=== PATIENT | male | born 1985 | race Two or more races ===

== ENCOUNTER 2025-01-05 10:12 | Emergency (ER) | payer MEDICAID, SELFPAY ==
[2025-01-05 10:19] VITALS: BP 141/93; PULSE 102; RESP 19; TEMP 37.2; O2SAT 95
[2025-01-05 10:38] VITALS: PULSE 90; RESP 16; O2SAT 95
[2025-01-05 10:41] VITALS: BMI 29.0
--- NOTE | 2025-01-05 10:47 | PD.EDADULT ---
ED General RME/HPI General Chief complaint: Altered Mental Status Stated complaint: AMS Time Seen by Provider: 01/05/25 10:51 Arrival date/time: 01/05/25 10:12 RME / HPI RME / HPI narrative: DR. LOPEZ MAIN ED EVALUATION: 39 year old male presents to the Emergency Department BIBA and police with complaint of altered mental status. He states he was smoking Fentanyl with a pipe and then he fell asleep in his car and police was called. He also admits to using methamphetamine. He states he has been using Fentanyl with a pipe for a 1 year. He otherwise has no complaints, asymptomatic. Related Data Home Medications ?Medication ?Instructions ?Recorded ?Confirmed buspirone 15 mg tablet 15 mg PO BID 04/30/23 04/30/23 quetiapine 300 mg tablet 300 mg PO DAILY 04/30/23 04/30/23 Allergies Allergy/AdvReac Type Severity Reaction Status Date / Time No Known Allergies Allergy Verified 01/05/25 10:43 Review of Systems Review of Systems Systems Reviewed: All systems reviewed, normal except as documented Narrative Review of Systems: Constitutional: DENIES: fevers; Eyes: DENIES: loss of vision; Head/Ear/Nose: DENIES: loss of hearing. Throat: DENIES: dysphagia. Cardiovascular: DENIES: chest pain, dyspnea, or syncope. Respiratory: DENIES: shortness of breath; Gastrointestinal: DENIES: rectal bleeding or melena. Genitourinary: DENIES: dysuria (painful or difficult urination); Musculoskeletal: DENIES: arthralgia (pain in a joint); Skin: DENIES: rash; Neurological: DENIES: loss of function or movement; Psychiatric: DENIES: recent major life stressor, emotional problem, illicit drug use or abuse; Endocrinology: DENIES: weight change,; Hematologic/Lymphatic: DENIES: abnormal bruising. Allergic/Immunologic: DENIES: urticaria (hives). Past Medical History Past Medical History CARDIAC: Negative Congestive Heart Failure RESPIRATORY: Negative Chronic Obstructive Pulmonary Disease (COPD) GENITOURINARY: Negative Renal Disease ENDOCRINE: Negative Diabetes Mellitus Type 1 or Diabetes Mellitus Type 2 Social History SMOKING STATUS: Current every day smoker SUBSTANCE USE: marijuana, heroin, methamphetamine and other (Fentanyl) ALCOHOL: Current ED Exam Narrative Physical exam: Physical Exam: General: The vital signs were reviewed. Patient is kind of hypervigilant looking around bobbing his head and neck around at times heart is going fast pupils are 3 mm bilaterally otherwise in no apparent distress with a patent airway, no respiratory distress and has no apparent circulatory problems. Head & Scalp: Normocephalic, atraumatic. Face: Appears normal and is without lesions, deformity. Ears: Left external pinna appears normal. Right external pinna appears normal. Eyes: The sclera is anicteric. No obvious photophobia. The Left and Right Orbit/Lid/Conjunctiva appears normal without swelling, discoloration or injection. Nose: The nose is without deformity, discharge or tenderness; Throat: Appears normal. The mucous membranes are pink and moist without exudates, redness or mass seen. The tongue appears normal. Neck: The neck is supple and no apparent mass or adenopathy. Chest: The chest wall is normal in size and symmetry and has no chest wall tenderness or crepitus. The patient displays normal ventilator effort without retractions, accessory muscle use and has adequate air movement bilaterally with no wheezes and no rales. Cardiovascular: Tachycardia [birth year]1939 in the ambulance bay regular rate and rhythm; No murmurs, rubs, or gallops; Gastrointestinal: The abdomen appears normal. No obvious hernias or mass. The abdomen is soft and benign, non-distended, with no pain, no guarding and no rebound tenderness. Bowel sounds are present and normal sounding. No CVA tenderness. Genitourinary: Back/Spine: Extremities/Musculoskeletal/lymphatic: The bilateral upper and lower extremities are warm. There is no evidence of arterial insufficiency. There is no evidence of venous insufficiency/edema. The patient spontaneously moves bilateral upper and lower extremities with no pain and no limitation of movement. There is no apparent, injury or trauma. Skin: The skin is warm, dry and intact. No rashes. No petechia. No purpura. No abnormal bruising. The color is appropriate with no cyanosis. Mental status/Psychiatric: Mental status is appropriate for age. The patient has no apparent delusions, visual hallucinations, no apparent audible hallucinations. The patient has no apparent suicidal thoughts/ideation and no apparent homicidal thoughts/ideation. Neurological: The patient is awake, alert, interactive, cordial, cooperative and is oriented to name and situation. The patient follows commands and answers historical question with no impairment. There is no visual disturbance apparent. The pupils are equal and reactive bilaterally with normal eye movements and no diplopia The bilateral upper and lower extremities have normal strength, normal range of motion and normal functioning. The gait, station and balance appear to be baseline with no acute change Course Quality Measures none Orders Category Date Time Status Miscellaneous Nursing Order NOW Care 01/05/25 10:51 Active Alcohol, Blood Medical Stat Lab 01/05/25 11:24 Completed CBC Stat Lab 01/05/25 11:24 Completed Comprehensive Metabolic Panel Stat Lab 01/05/25 11:24 Completed Drug Screen,Urine Stat Lab 01/05/25 11:59 Completed Urinalysis Stat Lab 01/05/25 11:59 Completed Vital Signs Vital signs: Vital Signs Temperature 99.0 F 01/05/25 10:19 Pulse Rate 102 H 01/05/25 10:19 Respiratory Rate 19 01/05/25 10:19 Blood Pressure 141/93 H 01/05/25 10:19 Pulse Oximetry (%) 95 01/05/25 10:19 Oxygen Delivery Method Room Air 01/05/25 10:19 [facility] Patient data External records reviewed:: [facility] previous records (Reviewed last ED visit dated 04/30/23 discharged with the following: Methamphetamine abuse) Clinical information provided by:: patient Social determinants that could affect healthcare access:: substance use (Fentanyl, marijuana, heroin, methamphetamine. ) Patient has the following chronic illnesses:: Polysubstance abuse and alcohol use; but denies any PMHx, surgeries, daily medications, or known allergies. How is presenting disease/condition affected by chronic disease/condition?: no chronic disease Evaluation data The following diagnostics were reviewed and interpreted by me:: lab results Lab and/or radiology exams considered but not ordered:: none Interpretation Summary: See above under MDM narrative. Urine is positive for Fentanyl, methamphetamine, and marijuana. Medications Medications considered but not ordered:: none Medication administrations:: see above if any Consultations Consultation(s) initiated? (list below): No Diagnosis Differential Diagnosis ED Complaint MDM: generalized weakness, dehydration, electrolyte imbalance Most likely diagnosis given after review of the tests above:: Fentanyl, methamphetamine, and marijuana abuse. Admission Indicated Admission indicated?: not indicated Explain why admission is indicated or not indicated:: Patient has no emergent abnormalities on his studies and can be managed on an outpatient basis. Admission Request Was there a request for admission?: No Disposition Plan Disposition Plan: Discharge Discharge Attestation Discharge Attestation: The patient and all family members were given an opportunity to ask questions and understood the discharge instructions. Discharge instructions specifically effects, indications for sooner follow up or return to the emergency department, and the expected course of current diagnosis. Patient condition: Stable Medical Decision Making MDM Narrative MDM Narrative: Patient was found slumped over unresponsive in the car but arouses stimuli admit using a pipe with fentanyl and later admits to using methamphetamine. Seems tachycardic and vigilant and I suspect he is under the influence of meth may be coming down and/or fentanyl mixed. Work and observe him do some basic labs. He does have a history of alcohol abuse on the chart and schizophrenia. Neurochecks every 15 minutes for next 2 hours to make sure that he is not can become apneic or slow down his breathing. Patient has been observed since arrival and on recheck at 1340 hrs. patient is alert awake his heart rate is down to 103 he is not as jittery is not as vigilant he has had no episodes of apnea and no episodes of slowing his breathing and his mental status is been fully alert since the initial 30 minutes where he was a still little sluggish and then that seems to have resolved over the past hour and a half 2 hours. Medical workup shows white count 8.5 hemoglobin of 14.7 chemistries electrolytes are normal BUN/creatinine are normal glucose 105 transaminases and total bilirubin are normal urine came back negative and his drug screen is positive for fentanyl amphetamines and marijuana but his alcohol level is 0. Clinically patient is ready to go he is hungry his vital signs are normalizing and he has been advised he should not use illicit drugs in [facility] or other recovery programs. Differential Diagnosis Differential Diagnosis: generalized weakness, dehydration, electrolyte imbalance Lab Data 01/05/25 11:24 01/05/25 11:24 Labs: Lab Results 01/05/25 01/05/25 Range/Units 11:24 11:59 WBC 8.5 (3.8-10.6) Thou/mm3 RBC 5.08 (4.50-5.90) Miln/mm3 Hgb 14.7 (13.5-16.0) g/dL Hct 42.8 (41.0-53.0) % MCV 84 (80-100) fL MCH 28.9 (25.0-35.0) pg MCHC 34.3 (31.0-37.0) g/dl RDW Std Deviation 35.1 (35.1-43.9) fL Plt Count 304 (140-440) Thou/mm3 Neut % (Auto) 65 (37-80) % Lymph % (Auto) 24 (10-50) % [place] % (Auto) 8 (0-12) % Eos % (Auto) 2 (0-10) % Baso % (Auto) 0 (0-2.5) % Neut # (Auto) 5.6 (1.8-7.7) Thou/mm3 Lymph # (Auto) 2.1 (1.0-4.8) Thou/mm3 [place] # (Auto) 0.7 (0.0-0.8) Thou/mm3 Eos # (Auto) 0.2 (0.0-0.5) Thou/mm3 Baso # (Auto) 0.0 (0.0-0.2) Thou/mm3 Immature Gran # (Auto) 0.03 H (0.00-0.00) Thou/mm3 Absolute Nucleated RBC 0.00 (0.00-0.00) Thou/mm3 Immature Gran % 0 (0-0) % Nucleated RBC % 0 (0) /100 WBC Sodium 138 (136-145) mMol/L Potassium 4.2 (3.4-5.1) mMol/L Chloride 104 (98-107) mMol/L Carbon Dioxide 27.8 (20.0-31.0) mMol/L Anion Gap 6 L (7-16) BUN 14 (9-23) mg/dL Creatinine 1.0 (0.6-1.3) mg/dL Estim Creat Clear Calc 98.5 (>60) mL/min eGFR > 60 (60 - ) See Note BUN/Creatinine Ratio 14 (12-20) Ratio Glucose 105 (74-106) mg/dL Calculated Osmolality 276 (275-295) Calcium 9.0 (8.3-10.6) mg/dL Corrected Calcium 9.0 (8.5-10.1) mg/dL Total Bilirubin 0.5 (0.3-1.2) mg/dL AST 19 (0-34) U/L ALT 27 (10-49) U/L Alkaline Phosphatase 108 (46-116) U/L Total Protein 7.3 (5.7-8.2) gm/dL Albumin 4.3 (3.5-5.0) gm/dL Globulin 3.0 (2.3-3.5) gm/dL Albumin/Globulin Ratio 1.4 (1.2-2.2) Ur Collection Type Clean Catch Urine Color Lt-Yellow (Lt Yel-Yel) Urine Clarity Clear (Clear/Hazy) Urine pH 7.0 (5.0-7.0) Ur Specific [place] 1.023 (1.001-1.035) Urine Protein Negative (Neg - Trace) Urine Glucose (UA) Negative (Negative) Urine Ketones Negative (Negative) Urine Blood Negative (Negative) Urine Nitrite Negative (Negative) Urine Bilirubin Negative (Negative) Urine Urobilinogen (Auto) Negative (0.0-1.0) mg/dL Ur Leukocyte Esterase Negative (Negative) Urine RBC 3 (0-3) /hpf Urine WBC 1 (0-5) /hpf Ur Squamous Epith Cells 0 (0-5) /hpf Urine Bacteria None (None) Urine Opiates Screen Negative (Negative) Urine Fentanyl Screen Positive A (Negative) Ur Barbiturates Screen Negative (Negative) U Amphetamin/Meth Scrn Positive A (Negative) U Benzodiazepines Scrn Negative (Negative) U Cocaine Metab Screen Negative (Negative) U Marijuana (THC) Screen Positive A (Negative) Ethyl Alcohol < 3.0 (0-10.0) mg/dL Discharge Plan Plan Patient Disposition: HOME (Self Care) Prescriptions/Referrals Prescriptions/Med Rec: No Action quetiapine 300 mg tablet 300 mg PO DAILY buspirone 15 mg tablet 15 mg PO BID Patient Comments: TAKE ONE TABLET BY MOUTH TWICE DAILY Problem List Clinical Impression: Accidental fentanyl overdose, Methamphetamine abuse, Marijuana abuse Patient/Caregiver Discharge Instructions Education Materials: ED Drug Abuse Additional Instructions: Today you were found slumped over in your car presumably overdosed on fentanyl but responded to stimuli and over the last 3 hours your mental status as normalized. Also have methamphetamine and marijuana your system. Please stop using drugs. Please consider [facility] recovery programs and/or [facility] which are available in the [facility]. Please take care of your body and consume proper nutrition. Print Language: Italian Stand Alone Forms: Patient Portal Info Letter
--- NOTE | 2025-01-05 11:24 | PC.NURSE ---
PT BROUGHT IN AFTER BEING FOUND IN CAR AFTER TAKING RECREATIONAL DRUGS. PER EMS PT HAD TAKEN METH AND FENTYNAL. ON ASSESSMENT PT IS LETHARGIC BUT AROUSABLE. PT RESPONDING TO QUESTIONS. MD IN TO SEE PT AND WILL FOLLOW THROUGH WITH ORDERS.
[2025-01-05 11:35] LABS: Basophils % (Auto) 0 % (0-2.5); Eosinophils # (Auto) 0.2 Thou/mm3 (0.0-0.5); Eosinophils % (Auto) 2 % (0-10); Hematocrit 42.8 % (41.0-53.0); Hemoglobin 14.7 g/dL (13.5-16.0); Immature Granulocytes % (Auto) 0 % (0-0); Immature Granulocytes Auto 0.03 Thou/mm3 (0.00-0.00); Lymphocytes # (Auto) 2.1 Thou/mm3 (1.0-4.8); Lymphocytes % (Auto) 24 % (10-50); Mean Corpuscular HGB Conc 34.3 g/dl (31.0-37.0); Mean Corpuscular Hemoglobin 28.9 pg (25.0-35.0); Mean Corpuscular Volume 84 fL (80-100); Monocytes # (Auto) 0.7 Thou/mm3 (0.0-0.8); Monocytes % (Auto) 8 % (0-12); Neutrophils # (Auto) 5.6 Thou/mm3 (1.8-7.7); Neutrophils % (Auto) 65 % (37-80); Nucleated Red Blood Cell % 0 /100 WBC (0); Platelet Count 304 Thou/mm3 (140-440); RDW Standard Deviation 35.1 fL (35.1-43.9); Red Blood Count 5.08 Miln/mm3 (4.50-5.90); White Blood Count 8.5 Thou/mm3 (3.8-10.6)
--- NOTE | 2025-01-05 11:36 | PC.NURSE ---
PT AMBULATED 80 FEET WITH MINIMAL C/O DIZZINESS. MADE AWARE.
[2025-01-05 11:56] LABS: Alanine Aminotransferase 27 U/L (10-49); Albumin, Serum 4.3 gm/dL (3.5-5.0); Albumin/Globulin Ratio 1.4 (1.2-2.2); Alcohol, Blood Medical < 3.0 mg/dL (0-10.0); Alkaline Phosphatase 108 U/L (46-116); Anion Gap 6 (7-16); Aspartate Amino Transferase 19 U/L (0-34); BUN/Creatinine Ratio 14 Ratio (12-20); Bilirubin,Total 0.5 mg/dL (0.3-1.2); Blood Urea Nitrogen 14 mg/dL (9-23); Carbon Dioxide 27.8 mMol/L (20.0-31.0); Chloride 104 mMol/L (98-107); Estimated Creatinine Clearance 98.5 mL/min (>60); Glucose 105 mg/dL (74-106); Osmolality,Calculated 276 (275-295); Potassium 4.2 mMol/L (3.4-5.1); Sodium 138 mMol/L (136-145); Total Protein 7.3 gm/dL (5.7-8.2); eGFR > 60 See Note
[2025-01-05 11:57] VITALS: BP 140/82; PULSE 83; RESP 18; TEMP 37.1; O2SAT 96
[2025-01-05 12:19] LABS: Collection Type, Urine Clean Catch; Squamous Epithelial Cell,Urine 0 /hpf (0-5)
[2025-01-05 12:31] LABS: Bilirubin,Urine Negative (Negative); Blood,Urine Negative (Negative); Clarity,Urine Clear (Clear/Hazy); Color,Urine Lt-Yellow (Lt Yel-Yel); Glucose, Urine Negative (Negative); Ketones,Urine Negative (Negative); Leukocyte Esterase,Urine Negative (Negative); Nitrite,Urine Negative (Negative); Protein,Urine Negative (Neg - Trace); RBC,Urine 3 /hpf (0-3); Specific Gravity,Urine 1.023 (1.001-1.035); Urobilinogen,Urine Negative mg/dL (0.0-1.0); WBC,Urine 1 /hpf (0-5)
[2025-01-05 12:38] LABS: Amphetamine/Methamp Scrn,U Positive (Negative); Barbiturate Screen,Urine Negative (Negative); Benzodiazepines Screen,Urine Negative (Negative); Benzoylecgonine Screen, Ur Negative (Negative); Fentanyl Screen,Urine Positive (Negative); Opiate Screen,Urine Negative (Negative); THC Screen,Urine Positive (Negative)
--- NOTE | 2025-01-05 13:47 | PC.NURSE ---
MEAL PROVIDED TO PT.
[2025-01-05 14:07] VITALS: BP 123/85; PULSE 88; RESP 20; O2SAT 96
== END 2025-01-05 14:08 | disposition home or self-care (01) ==
LOC: SERX 13:58
PROVIDERS: Emergency Provider Emergency Medicine; PCP Family Medicine
DX: T40.411A Poisoning by fentanyl or fentanyl analogs, accidental (unintentional), initial encounter (principal); F15.10 Other stimulant abuse, uncomplicated; F12.10 Cannabis abuse, uncomplicated
CPT/HCPCS: 36415; 80053; 80307; 80320; 81001; 85025; 99283; G0480

== ENCOUNTER 2025-07-22 12:53 | Emergency (ER) | payer MEDICAID, SELFPAY ==
[2025-07-22 12:56] VITALS: BP 104/64; PULSE 153; RESP 20; TEMP 37.1; O2SAT 88; BMI 23.9
--- NOTE | 2025-07-22 12:56 | EKG_ITS ---
[facility] Test Date: 2025-07-22 Pat Name: TERE SÁNCHEZ Department: Room: - Gender: Male Delivery Assistant: : 1985 Requested By: Marques Huff Order Number: [id number] Reading MD: Marques Huff Measurements Intervals Monitor Rate: 129 P: 51 [place]: 149 QRS: -58 QRSD: 90 T: 51 QT: 291 QTc: 427 Interpretive Statements SINUS TACHYCARDIA LEFT ANTERIOR FASCICULAR BLOCK [QRS AXIS <= -45, QR IN I, RS IN II] Compared to ECG 04/30/2023 11:48:30 Left anterior fascicular block now present /store/S0/[id number]/[id number].pdf
[2025-07-22 12:57] VITALS: PULSE 150; RESP 20; O2SAT 91
[2025-07-22] MEDS: levETIRAcetam INJ 100 MG/ML VIAL 5ML 1000 MG IVP (13:18)
[2025-07-22] MEDS: RINGERS LACTATED 1000 ML 1,000 ML 999 ML IV ×2 (13:19→13:59)
[2025-07-22] MEDS: DIAZEPAM INJ 5 MG/ML VIAL 2 ML 10 MG IVP (13:19)
--- NOTE | 2025-07-22 13:35 | PC.LAC ---
Pt. [place] room [place] was found down on the ground having a seizure per bystanders, pt. admitted to meth and marijuana use this morning. Pt. is diaphoretic and very sleepy. Pt. will wake up when being spoken to but then closes his eyes and goes back to resting. Pt. has redness to the center upper chest from being sternal rubbed.
--- NOTE | 2025-07-22 13:35 | XR_ITS ---
Examination: CT brain head without contrast. 2-D sagittal coronal reconstructions Date and time of exam: July 22, 2025, 1354 hours INDICATIONS: Seizures with fall and injury to the back of the head today COMPARISON: June 02, 2004 CTDI: vol (mGy): 51.2 DLP: (mGycm): 1066 Technique: Multiple CT axial sections of the brain have been obtained, 5 mm slice thickness. Contrast has not been administered. 2-D sagittal, coronal reconstructions have been obtained Low dose protocols were performed. One or more of the following dose reduction techniques were used; automated exposure control, adjustment of the mA and/or KV according to patient size, use of iterative reconstruction technique. Findings: No significant ventricular enlargement. 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 No mass effect or midline shift Basal cisterns are not remarkable. Fourth ventricle is midline. Cranial vault intact. 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
[2025-07-22 13:37] LABS: Collection Type, Urine Clean Catch; Squamous Epithelial Cell,Urine 0 /hpf (0-5)
[2025-07-22 13:45] LABS: Basophils # (Auto) 0.0 Thou/mm3 (0.0-0.2); Basophils % (Auto) 0 % (0-2.5); Eosinophils # (Auto) 0.2 Thou/mm3 (0.0-0.5); Eosinophils % (Auto) 2 % (0-10); Hematocrit 43.4 % (41.0-53.0); Hemoglobin 15.3 g/dL (13.5-16.0); Immature Granulocytes Auto 0.06 Thou/mm3 (0.00-0.00); Lymphocytes # (Auto) 2.4 Thou/mm3 (1.0-4.8); Lymphocytes % (Auto) 21 % (10-50); Mean Corpuscular HGB Conc 35.3 g/dl (31.0-37.0); Mean Corpuscular Hemoglobin 30.6 pg (25.0-35.0); Mean Corpuscular Volume 87 fL (80-100); Monocytes # (Auto) 0.7 Thou/mm3 (0.0-0.8); Monocytes % (Auto) 7 % (0-12); Neutrophils # (Auto) 7.8 Thou/mm3 (1.8-7.7); Neutrophils % (Auto) 70 % (37-80); Nucleated Red Blood Cell # 0.00 Thou/mm3 (0.00-0.00); Nucleated Red Blood Cell % 0 /100 WBC (0); Platelet Count 318 Thou/mm3 (140-440); RDW Standard Deviation 37.8 fL (35.1-43.9); Red Blood Count 5.00 Miln/mm3 (4.50-5.90); White Blood Count 11.2 Thou/mm3 (3.8-10.6)
[2025-07-22 13:58] LABS: INR 1.0 (0.9-1.3); Partial Thromboplastin Time 21.1 Seconds (22.0-36.0); Prothrombin Time 10.5 Seconds (9.0-12.2)
[2025-07-22 14:00] LABS: B-Type Natriuretic Peptide < 20 pg/mL (0-100)
[2025-07-22 14:02] LABS: Alanine Aminotransferase 23 U/L (10-49); Albumin, Serum 4.6 gm/dL (3.5-5.0); Albumin/Globulin Ratio 1.7 (1.2-2.2); Alkaline Phosphatase 108 U/L (46-116); Anion Gap 13 (7-16); Aspartate Amino Transferase 23 U/L (0-34); BUN/Creatinine Ratio 8 Ratio (12-20); Bilirubin,Total 0.2 mg/dL (0.3-1.2); Blood Urea Nitrogen 11 mg/dL (9-23); Calcium 9.4 mg/dL (8.3-10.6); Calcium (Corrected) 9.4 mg/dL (8.5-10.1); Carbon Dioxide 25.4 mMol/L (20.0-31.0); Chloride 104 mMol/L (98-107); Creatine Kinase 121 U/L (34-171); Creatinine (Component) 1.3 mg/dL (0.6-1.3); Estimated Creatinine Clearance 60.2 mL/min (>60); Globulin 2.7 gm/dL (2.3-3.5); Glucose 103 mg/dL (74-106); Lipase 33 U/L (12-53); Magnesium 2.3 mg/dL (1.6-2.6); Osmolality,Calculated 282 (275-295); Potassium 3.9 mMol/L (3.4-5.1); Sodium 142 mMol/L (136-145); Total Protein 7.3 gm/dL (5.7-8.2); eGFR > 60 See Note
[2025-07-22 14:04] LABS: Amphetamine/Methamp Scrn,U Positive (Negative); Barbiturate Screen,Urine Negative (Negative); Benzodiazepines Screen,Urine Negative (Negative); Benzoylecgonine Screen, Ur Negative (Negative); Fentanyl Screen,Urine Positive (Negative); Opiate Screen,Urine Negative (Negative); THC Screen,Urine Positive (Negative)
[2025-07-22 14:10] LABS: Bilirubin,Urine Negative (Negative); Blood,Urine Negative (Negative); Clarity,Urine Clear (Clear/Hazy); Color,Urine Lt-Yellow (Lt Yel-Yel); Culture Indicated,Urine Not Indicated; Glucose, Urine Negative (Negative); Hyaline Casts,Urine < 1 /hpf (0-1); Ketones,Urine Negative (Negative); Leukocyte Esterase,Urine Negative (Negative); Nitrite,Urine Negative (Negative); PH,Urine 6.5 (5.0-7.0); Protein,Urine 1+ (Neg - Trace); RBC,Urine 2 /hpf (0-3); Specific Gravity,Urine 1.025 (1.001-1.035); Sperm,Urine Present; Urobilinogen,Urine Negative mg/dL (0.0-1.0); WBC,Urine 1 /hpf (0-5)
--- NOTE | 2025-07-22 14:19 | EDNOTE_ITS ---
<Statement entered by Patricia Reynolds MD - 07/23/25 06:48> As co-signing physician, I was present and available for consult prn. I concur with the plan and care as documented by the midlevel provider. ED General RME/HPI General Chief complaint: Seizure Stated complaint: SEIZURES Time Seen by Provider: 07/22/25 12:55 Arrival date/time: 07/22/25 12:53 CC: Seizure HPI patient presents to the ER via EMS who state the patient stepped out of a bus and felt promptly fell to the ground with seizure-like activity . Patient does not have a history of seizures however has a history of methamphetamine use and upon arrival his heart rate was in the 150s, the patient admits to methamphetamine marijuana and drinking alcohol yesterday. Patient is awake alert EMS report postictal. Has been improving. Review of the medical record show another visit to this hospital for polysubstance abuse Related Data Home Medications ?Medication ?Instructions ?Recorded ?Confirmed buspirone 15 mg tablet 15 mg PO BID 04/30/23 quetiapine 300 mg tablet 300 mg PO DAILY 04/30/23 Previous Rx's ?Medication ?Instructions ?Recorded levetiracetam 500 mg tablet 500 mg PO BID #30 tabs 05/09 (Kebluera) Allergies Allergy/AdvReac Type Severity Reaction Status Date / Time No Known Allergies Allergy Verified 07/22/25 13:02 Review of Systems Review of Systems Narrative Review of Systems: GEN: No fever, no chills, no weight loss EYES: No discharge, no visual changes, no pain HEENT: No ear pain, no congestion, no sore throat PULM: No shortness of breath, no cough, no congestion CV: No chest pain, no dyspnea on exertion, no palpitations GI: No nausea, no vomiting, no diarrhea, no pain, no constipation : No frequency, no urgency, no dysuria MUSC/SKEL: No joint pain, no back pain SKIN: No rash PSYCH: No hallucinations, no depression HEME/LYMPH: No easy bleeding or bruising tendencies NEURO: No weakness, no headache Past Medical History Past Medical History CARDIAC: Negative Congestive Heart Failure RESPIRATORY: Negative Chronic Obstructive Pulmonary Disease (COPD) GENITOURINARY: Negative Renal Disease ENDOCRINE: Negative Diabetes Mellitus Type 1 or Diabetes Mellitus Type 2 Social History SMOKING STATUS: Current every day smoker SUBSTANCE USE: marijuana, heroin, methamphetamine and other (Fentanyl) ED Exam Narrative Physical exam: [General: Appears not in any acute distress Head normocephalic small abrasion to the back of the head. HEENT: Eyes pupils are PERRLA EOMs are intact mouth [place] dry membranes uvula is midline swallow symmetrical all other subsystems of HEENT are within acceptable limits Neck is supple nontender no JVD no edema Chest equal chest rise nontender to palpation Respiratory: Clear to auscultation no wheezes crackles or rubs CV: Rate rhythm is regular no murmurs rubs or clicks Abdomen is soft nontender no masses positive bowel sounds all 4 quadrants Back: No CVA tenderness no spinous process tenderness from cervical spine thoracic and lumbar spine Skin: Mildly diaphoretic, otherwise intact no petechiae rash induration ulcerat ion or crepitus Extremities: Moving all extremity against resistance cap refill less than 2 seconds neurosensory intact Neuro: Awake alert oriented x2, person and place, Glascow coma 15 no focal defic its] Course Course Course Narrative: Upon assessment patient was given 10 of Valium which reduced heart rate promptly into the 110s. 1 g of Keppra was loaded to prevent any further seizures. Reassessment of this patient at 1550, the patient has had no reoccurrence of seizure-like activity. The patient is awake alert blood pressure is now stabilized heart rate is under 100. CT shows old basal ganglier infarcts but nothing acute. Patient is positive for methamphetamines fentanyl and marijuana. Patient's case discussed with Dr. Foster neurologist who is requesting the patient be brought in for MRI and complete workup. Patient is in agreement with this plan. Patient's case clinical findings and imaging discussed with resident for Dr. Marte who agreed to accept the patient for admission. After being interviewed with the residents for the hospitalist, at 1624 the patient has elected to leave AMA. I advised him that he is at the risk for stroke at minimum leading up to and including . Patient understands he continues wanting to leave. Patient is awake alert oriented and of sound mind at this time. Quality Measures none Orders Category Date Time Status COVID-19 Screening Questionnaire NOW Care 07/22/25 15:54 Active Decision to Admit X1 Care 07/22/25 15:54 Active EKG (ED ONLY) *Do not use* NOW Care 07/22/25 12:56 Completed MRI Screening NOW Care 07/22/25 15:46 Active Consult to Neurology / Tele-Neurology Stat Cons 07/22/25 15:[address] head/brain wo con Stat Exams 07/22/25 13:35 Completed EKG (ED Only) Stat Exams 07/22/25 12:56 Draft MR head/brain wo con Stat Exams 07/22/25 Ordered Alcohol, Blood Medical Stat Lab 07/22/25 13:29 Received B-Type Natriuretic Peptide Stat Lab 07/22/25 13:29 Completed CBC Stat Lab 07/22/25 13:29 Completed Comprehensive Metabolic Panel Stat Lab 07/22/25 13:29 Completed Creatine Kinase Stat Lab 07/22/25 13:29 Completed Drug Screen,Urine Stat Lab 07/22/25 13:27 Completed Lipase Stat Lab 07/22/25 13:29 Completed Magnesium Stat Lab 07/22/25 13:29 Completed Partial Thromboplastin Time Stat Lab 07/22/25 13:29 Completed Prothrombin Time with INR Stat Lab 07/22/25 13:29 Completed Urinalysis, C/S if Indicated Stat Lab 07/22/25 13:27 Completed Diazepam Inj [Valium Inj] Med 07/22/25 12:55 Discontinued 10 mg IVP X1 ONE Ringers Lactated 1000 ml [Lactated Ringers] 1,000 ml Med 07/22/25 12:56 Discontinued IV 999 mls/hr Ringers Lactated 1000 ml [Lactated Ringers] 1,000 ml Med 07/22/25 12:57 Discontinued IV 999 mls/hr levETIRAcetam INJ [Keppra Inj] Med 07/22/25 12:55 Discontinued 1,000 mg IVP X1 ONE Vital Signs Vital signs: Vital Signs Temperature 98.8 F 07/22/25 12:56 Pulse Rate 153 H 07/22/25 12:56 Respiratory Rate 20 07/22/25 12:56 Blood Pressure 104/64 07/22/25 12:56 Pulse Oximetry (%) 88 L 07/22/25 12:56 Oxygen Delivery Method Room Air 07/22/25 12:56 Discharge Plan Plan Patient Disposition: Left Against Medical Advice Patient condition on transfer: Stable Prescriptions/Referrals Prescriptions/Med Rec: New levetiracetam [Keppra] 500 mg tablet 500 mg PO BID Qty: 30 0RF No Action quetiapine 300 mg tablet 300 mg PO DAILY buspirone 15 mg tablet 15 mg PO BID Patient Comments: TAKE ONE TABLET BY MOUTH TWICE DAILY Referrals: Isidoro Rebolledo MD [Primary Care Provider, Family Practice] - In 1 week Problem List Clinical Impression: New onset seizure, Polysubstance abuse Patient/Caregiver Discharge Instructions Other Activity Instructions:: Please return to the hospital at any time you feel the symptoms need to be addressed. Education Materials: ED Drug Abuse, ED Seizure New Onset Unknown ... Print Language: Malagasy Stand Alone Forms: [facility] [employer] Info. PA/[employer] Supervising Physician PA/[employer] Supervising Physician: Marques Reese ENP [facility] Clinical Information Provided by: patient Medical Records reviewed [facility] Meds/Rx considered, not ordered None Labs/Rad/Tests considered, not ordered None Chronic Illness/Social Conditions which may negatively complicate care or outcome(s)-explain: ETOH/drugs/substance abuse Labs Labs: interpreted by ma Lab(s) Interpretation(s): CBC shows no significant leukocytosis anemia thrombocytopenia Coags show PTT of 21.1 PT and INR within acceptable limits CMP shows no significant electrolyte abnormalities no transaminitis or T. bili elevation. BNP is negative Lipase is normal Urine 1+ protein UDS is positive both for fentanyl amphetamines and marijuana. Creatinine kinase at 121 Medication Administration(s) Medication Administration History Discontinued Medications Diazepam (Diazepam Inj 5 Mg/Ml Vial 2 Ml) 10 mg IVP X1 ONE Stop: 07/22/25 12:56 Last Admin: 07/22/25 13:19 Dose: 10 mg Documented By: VL Lactated Ringer's (Lactated Ringers) 1,000 mls @ 999 mls/hr IV .Q1H1M ONE Stop: 07/22/25 13:56 Last Admin: 07/22/25 13:19 Dose: 999 mls/hr Documented By: VL Lactated Ringer's (Lactated Ringers) 1,000 mls @ 999 mls/hr IV .Q1H1M ONE Stop: 07/22/25 13:57 Last Admin: 07/22/25 13:59 Dose: 999 mls/hr Documented By: ED Levetiracetam (Levetiracetam Inj 100 Mg/Ml Vial 5ml) 1,000 mg IVP X1 ONE Stop: 07/22/25 12:56 Last Admin: 07/22/25 13:18 Dose: 1,000 mg Documented By: VL
[2025-07-22 15:25] VITALS: BP 115/87; PULSE 95; RESP 17; TEMP 36.7; O2SAT 95
--- NOTE | 2025-07-22 16:25 | PC.NURSE ---
Dr. Abarca hospitalist is bedside to talk to pt. about admission and pt. stating he wants to leave AMA.
--- NOTE | 2025-07-22 16:30 | PC.NURSE ---
Marques bedside talking with pt. and states to let pt. sign AMA form, pt. signed AMA form.
[2025-07-22 16:34] LABS: Alcohol, Blood Medical < 10.0 mg/dL (0-10.0)
[2025-07-22 16:36] VITALS: BP 114/82; PULSE 94; RESP 16; TEMP 36.7; O2SAT 95
--- NOTE | 2025-07-22 17:52 | PD.RESEVENT ---
Documentation for date of: 07/22/25 The patient decided to leave AGAINST MEDICAL ADVICE Mckinley Angelo 40M pmhx of schizophrenia presented with witnessed seizure like activity. Patient was seen by primary team following ED consult for admission. Patient presented with seizure like episode, no history of seizures or similar episodes and patient does not remember episode. 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 UDS postitive for methamphetamine, fentanyl and marijuana, last use 2 days ago, and ran out of his Seroquel and buspar a few days ago due to no refills. Patient is alert and oriented times three and the patient has decided to leave against medical advice to attend to his daughters. Patient has normal mental status and adequate capacity to make medical decisions. The patient refuses hospital admission and wants to leave AGAINST MEDICAL ADVICE The risks have been explained to the patient, including progression of possible seizure recurrence, worsening illness, chronic pain, permanent disability and . The benefits of admission have also been explained, including the availability and proximity of nurses, physicians, monitoring, diagnostic testing, treatment and neurology evaluation. The patient was able to understand and state the risks and benefits of hospital admission and had the opportunity to ask questions about their medical condition. Patient was encouraged to continue home medications including seroquel and buspirone. The patient was treated to the extent that patient would allow and knows that they may return for care at any time and also encouraged to return to the ER. GENERAL: AOx3, no acute distress, sitting up comfortably in bed HEENT: NC/AT, mucous membranes moist, bilateral sclera anicteric, intermittent rolling eyes appreciated best on superior gaze CARDIOVASCULAR: regular rate and rhythm, S1/S2 present, no murmurs appreciated PULMONARY: clear to auscultation bilaterally, no rales/rhonchi/wheezes ABDOMINAL: soft, non-tender, non-distended, no rebound/guarding, bowel sounds present EXTREMITIES: no peripheral edema SKIN: warm and dry, intact, no rashes NEURO: CN II-XII grossly intact, alert, following commands Muscle strength: Shoulder abduction: R 5/5 L 5/5 Elbow flexion: R 5/5 L 5/5 Elbow extension: R 5/5 L 5/5 Hip flexion: R 5/5 L 5/5 Hip extension: R 5/5 L 5/5 Knee flexion: R 5/5 L 5/5 Knee extension: R 5/5 L 5/5 Sisi Mihcael, DO Internal Medicine PGY-1
== END 2025-07-22 16:36 | disposition left against medical advice (07) ==
PROVIDERS: Registered Nurse General Practice; Emergency Provider Emergency Medicine; PCP Family Medicine
DX: R56.9 Unspecified convulsions (principal); F19.10 Other psychoactive substance abuse, uncomplicated; I44.4 Left anterior fascicular block; S09.90XA Unspecified injury of head, initial encounter; W19.XXXA Unspecified fall, initial encounter; Z53.29 Procedure and treatment not carried out because of patient's decision for other reasons
CPT/HCPCS: 36415; 70450; 80053; 80307; 80320; 81001; 82550; 83690; 83735; 83880; 85025; 85610; 85730; 93005; 96374; 96375; 99284; J1953; J3360; J7120; G0480

== ENCOUNTER 2025-07-26 19:06 | Emergency (ER) | payer MEDICAID, SELFPAY ==
--- NOTE | 2025-07-26 19:14 | PC.NURSE ---
PT AWAKE AND ALERT X 4, PT RESP EVEN AND UNLABORED AT THIS TIME. PT SPEAKING IN CLEAR SENTENCES. PT STATES HE DOES NOT WANT TO BE SEEN AND DOES NOT WANT TO BE EVALUATED BY DR. PT WALKED OUT OF ER AT THIS TIME. PT ENCOURAGED TO STAY BASED ON WHAT PT INGESTED PER EMS, BUT HE DECIDED TO LEAVE ANYWAY.
== END 2025-07-26 19:20 | disposition left against medical advice (07) ==
LOC: SERX 19:40
PROVIDERS: Emergency Provider Emergency Medicine
DX: Z53.21 Procedure and treatment not carried out due to patient leaving prior to being seen by health care provider (principal)
CPT/HCPCS: 80053; 80307; 80320; 81001; 85025; 99281; G0480